=== PATIENT | female | born 1975 | race Two or more races ===

== ENCOUNTER 2022-05-16 16:39 | Emergency (ER) | payer SELFPAY ==
[~2022-05-16] VITALS: Ht 162.6 cm; Wt 79.2 kg
[2022-05-16 17:13] VITALS: BP 123/79
[2022-05-16] MEDS ORDERED: ACETAMINOPHEN 500 MG TAB PO ONE (17:30)
[2022-05-16 17:37] LABS: Urine Bacteria FEW /hpf (None Seen); Urine Blood 2+ /uL (Negative); Urine Mucus FEW (None Seen); Urine Specific Gravity 1.013 (1.001-1.035); Urine WBC 375 /hpf (0 - 5)
[2022-05-16] MEDS ORDERED: CIPR500T4 PO (20:26)
[2022-05-16] MEDS ORDERED: PHEN95TA10 PO (20:26)
[2022-05-16] MEDS ORDERED: KETOROLAC TROMETH 30 MG/ML 1ML VIAL IM ONE (20:30)
[2022-05-16] MEDS ORDERED: cefTRIAXone SOD 1,000 MG VL IM ONE (20:30)
== END 2022-05-16 20:57 | disposition home or self-care (01) ==
LOC: ER 16:39
DX: N12 Tubulo-interstitial nephritis, not specified as acute or chronic (principal); R07.89 Other chest pain; Z20.822 Contact with and (suspected) exposure to COVID-19
CPT/HCPCS: 36415; 71046; 81001; 81025; 82962; 87426; 93005; 96372; 99285; J0696; J1885